=== PATIENT | female | born 1950 | race Caucasian/White ===

== ENCOUNTER → 2022-02-17 | Day surgery (SDC) | payer MEDICARE, OTHER ==
[~2022-02-17] VITALS: Ht 162.6 cm; Wt 73.6 kg
[~2022-02-17] MED LIST: COZAAR100 MG PO; EUTHYROX75 MCG PO; IRON325 M1 PO; METOPROLOL SUCC50 MG PO; PANTOPRAZOLE SO20 MG PO; SIMVASTATIN10 MG PO
== END | disposition home or self-care (01) ==
LOC: FAS 08:56
DX: D50.9 Iron deficiency anemia, unspecified (principal); K29.50 Unspecified chronic gastritis without bleeding; B96.81 Helicobacter pylori [H. pylori] as the cause of diseases classified elsewhere; K21.00 Gastro-esophageal reflux disease with esophagitis, without bleeding; D12.2 Benign neoplasm of ascending colon; D12.0 Benign neoplasm of cecum; D12.3 Benign neoplasm of transverse colon; K44.9 Diaphragmatic hernia without obstruction or gangrene; K57.30 Diverticulosis of large intestine without perforation or abscess without bleeding; K64.8 Other hemorrhoids; R63.4 Abnormal weight loss; E03.8 Other specified hypothyroidism; I12.9 Hypertensive chronic kidney disease with stage 1 through stage 4 chronic kidney disease, or unspecified chronic kidney disease; N18.31 Chronic kidney disease, stage 3a; E78.00 Pure hypercholesterolemia, unspecified; Z86.010 Personal history of colon polyps; Z80.0 Family history of malignant neoplasm of digestive organs; Z98.51 Tubal ligation status
CPT/HCPCS: J2250; J2704; J7120